=== PATIENT | female | born 1965 | race African-American/Black ===

== ENCOUNTER 2018-04-22 18:41 | Observation (INO) ==
[2018-04-22] MEDS ORDERED: Famotidine PF Inj 20 MG/2 ML Vial IV.PUSH ONE (19:36)
[2018-04-22 19:55] LABS: Baso % (Auto) 0.5 % (0.0-2.0); Eos # (Auto) 0.1 th/mm3 (0.0-0.4); Eos % (Auto) 1.3 % (0.0-4.0); Hematocrit 37.2 % (35.0-46.0); Hemoglobin 11.9 gm/dL (11.6-15.3); Lymph # (Auto) 1.8 th/mm3 (1.0-4.8); Lymph % (Auto) 35.1 % (9.0-44.0); Mean Corpuscular Hemoglobin 27.5 pg (27.0-34.0); Mean Corpuscular Volume 85.9 fL (80.0-100.0); Mean Platelet Volume 8.7 fL (7.0-11.0); Mono # (Auto) 0.6 th/mm3 (0.0-0.9); Neut # (Auto) 2.6 th/mm3 (1.8-7.7); Neut % (Auto) 52.1 % (16.0-70.0); Platelet Count 232 th/mm3 (150-450); Red Blood Count 4.33 mil/mm3 (4.00-5.30); Red Cell Distribution Width 14.9 % (11.6-17.2); White Blood Count 5.1 th/mm3 (4.0-11.0)
--- NOTE | 2018-04-22 19:57 | ED ---
HPI General Chief Complaint: Chest Pain Stated Complaint: High pressure/chest pain Time Seen by Provider: 04/22/18 19:13 History of Present Illness HPI narrative: Patient is a 52-year-old female coming in off-and-on chest pain substernal for the last day she says nothing makes it better nothing makes it worse she does not see any connection between food it is not exertional. She did not take anything for the symptoms. She has diabetes for which she takes metformin. She has hypertension for which she takes enalapril and nifedipine. The pain is localized substernal she has not seen another doctor for this. She has not taken any medications to alleviate this. And she is slightly hypertensive at triage 176 systolic blood pressure EKG is normal sinus rhythm at a rate of 60 bpm no ectopy no flipped T waves no ST depressions or elevations. Labs sent aspirin 162 chewable given and Pepcid IV is given Related Data Home Medications Medication Instructions Recorded Confirmed enalapril maleate 20 mg PO BID 04/22/18 04/22/18 metformin 500 mg PO BID 04/22/18 04/22/18 nifedipine 10 mg PO BID 04/22/18 04/22/18 Allergies Allergy/AdvReac Type Severity Reaction Status Date / Time No Known Allergies Allergy Verified 04/22/18 19:32 [facility] Medical History Medical History Diabetes (Acute) HTN (hypertension) (Acute) Surgical History Surgical History H/O: (Acute) History of appendectomy (Acute) Social History Social History Substance History: No History of Abuse Second Hand Smoke Exposure: No Smoking Status: Never smoker How Often Do You Have a Drink Containing Alcohol: Never Recent Travel in [facility] within the Last 8 Weeks: No Recent Out of Country Travel within the Last 8 Weeks: No Immunization History Tetanus Immunization: Unsure Exam Narrative Exam Narrative: GENERAL: Nontoxic-appearing in no apparent distress not diaphoretic no signs of acute ischemia cardiac SKIN: Warm and dry. HEAD: Atraumatic. Normocephalic. EYES: Pupils equal and round. No scleral icterus. No injection or drainage. ENT: No nasal bleeding or discharge. Mucous membranes pink and moist. NECK: Trachea midline. No JVD. CARDIOVASCULAR: Regular rate and rhythm. RESPIRATORY: No accessory muscle use. Clear to auscultation. Breath sounds equal bilaterally. GASTROINTESTINAL: Abdomen soft, non-tender, nondistended. Hepatic and splenic margins not palpable. MUSCULOSKELETAL: Extremities without clubbing, cyanosis, or edema. No obvious deformities. NEUROLOGICAL: Awake and alert. No obvious cranial nerve deficits. Motor grossly within normal limits. Five out of 5 muscle strength in the arms and legs. Normal speech. PSYCHIATRIC: Appropriate mood and affect; insight and judgment normal. Course Initial Documented Vital Signs Temperature 99.6 F 04/22/18 19:02 Pulse Rate 73 04/22/18 19:02 Respiratory Rate 22 04/22/18 19:02 Blood Pressure 169/84 H 04/22/18 19:02 Pulse Oximetry 99 04/22/18 19:02 Last Documented Vital Signs Temperature 99.6 F 04/22/18 19:02 Pulse Rate 66 04/22/18 19:38 Respiratory Rate 15 04/22/18 19:38 Blood Pressure 176/85 H 04/22/18 19:38 Pulse Oximetry 100 04/22/18 19:38 Medical Decision Making Differential Diagnosis Differential Diagnosis: Differential diagnosis includes GERD gastritis viral gastroenteritis versus cardiac ischemia versus costochondritis versus pericarditis versus muscle spasm versus gallbladder disease versus other Lab Data Lab results reviewed: Yes I reviewed the patient's lab results. Result diagrams: 04/22/18 19:35 04/22/18 19:35 ECG Data Attestation: I personally reviewed and interpreted this ECG as follows: (EKG normal sinus rhythm at a rate of 68 bpm) Discharge Plan Physicians Team ED Provider: Rich Salinas Primary Care Provider: Primary Care Bella Chao Rxs /Orders / Referrals /Forms Prescriptions: No Action metformin 500 mg Tablet 500 mg PO BID RF: 0 enalapril maleate 20 mg Tablet 20 mg PO BID RF: 0 nifedipine 10 mg Capsule 10 mg PO BID RF: 0 Status ED Status: With Doctor
[2018-04-22 20:20] LABS: Albumin 3.7 g/dL (3.4-5.0); Anion Gap 6 meq/L (5-15); Aspartate Aminotransferase 18 U/L (15-37); Blood Urea Nitrogen 22 mg/dL (7-18); Calcium 9.3 mg/dL (8.5-10.1); Carbon Dioxide 27.5 meq/L (21.0-32.0); Chloride 107 meq/L (98-107); Glomerular Filtration Rate 82 mL/min (>89); Glucose,Random 94 mg/dL (74-106); Potassium 4.2 meq/L (3.5-5.1); Sodium 140 meq/L (136-145)
[2018-04-22 20:21] LABS: Alanine Aminotransferase 23 U/L (10-53)
[2018-04-22 20:25] LABS: Alkaline Phosphatase 109 U/L (45-117); Total Protein 8.5 g/dL (6.4-8.2)
--- NOTE | 2018-04-22 20:30 | XR ---
EXAM DATE: 04/22/2018 7:32 PM EDT AGE/SEX: 52 years / Female INDICATIONS: Chest pain today. CLINICAL DATA: This is the patient's initial encounter. Patient reports that signs and symptoms have been present for 1 day and indicates a pain score of 5/10. MEDICAL/SURGICAL HISTORY: Hypertension. Diabetes. section. Appendectomy. COMPARISON: No prior exams available for comparison. FINDINGS: A single AP view of the chest demonstrates the lungs to be symmetrically aerated without evidence of mass, infiltrate or effusion. Cardiomegaly. No effusion or pneumothorax. CONCLUSION: Cardiomegaly without focal consolidation or effusion. Electronically signed by: Ole Chavez MD 04/22/2018 8:29 PM EDT
[2018-04-22 23:58] LABS: Creatine Kinase 130 U/L (26-192)
[2018-04-23 03:27] LABS: Creatine Kinase 122 U/L (26-192)
[2018-04-23 04:05] VITALS: RESP 16
[2018-04-23 07:18] VITALS: BP 141/82; TEMP 97.6; O2SAT 100
[2018-04-23] MEDS ORDERED: Acetaminophen 500 MG Tablet PO PRN (07:44)
--- NOTE | 2018-04-23 09:17 | P.HPCA ---
History of Present Illness Primary Care Physician: Primary Care Physician in [place] Chief Complaint: chest pain History of Present Illness: 52-year-old female with history of type 2 diabetes and hypertension visiting from [place] presents emergency room for further evaluation of chest pain. Onset Tuesday, became more severe Tuesday afternoon. Location substernal. Characterized as burning pressure. Radiation right inframammary area. No associated symptoms of nausea, vomiting, dyspnea, or diaphoresis. No precipitating or relieving factors. Denies similar pain in the past. History of acid reflux. Denies history of coronary artery disease. No past cardiac testing. Lifelong non-smoker. Family history contributory for early onset cardiovascular disease. No recent illness or injury. Past cardiac testing None Social history Known type 2 diabetes and hypertension diagnosed 2 years ago. No known coronary artery disease or hyperlipidemia. Of note patient is not on statin therapy. Lifelong non-smoker. No alcohol or recreational drug use. Lives in [place], visiting niece. Returning home 05/14/18. Endorses active lifestyle and dietary habits. Family history Noncontributory for early onset cardiovascular disease. - Diagnosis (1) Atypical chest pain (2) Hypertension (3) Type 2 diabetes mellitus Review of Systems All other systems reviewed negative except as stated in HPI PMFSH - History History Provided By: Patient - Medical History Medical History: Medical History (Last Reviewed 04/23/18 @ 09:28 by MARIA T Arnold) Diabetes HTN (hypertension) - Surgical History Surgical History: Surgical History (Last Reviewed 04/23/18 @ 09:28 by MARIA T Arnold) H/O: History of appendectomy - Family History Family History: Family History (Last Updated 04/23/18 @ 09:28 by MARIA T Arnold) Father Bone cancer - Social History I have reviewed the patient's Social History: Yes - Tobacco History Second Hand Smoke Exposure: No Tobacco Use In Past 30 Days: No Smoking Status: Never smoker - Alcohol History How Often Do You Have a Drink Containing Alcohol: Never - Substance Use History Substance History: No History of Abuse - Travel History Recent Travel in the [facility] Within the Last 8 Weeks: No Recent Travel Out of the Country Within the Last 8 Weeks: No - Immunization History Tetanus Immunization: Unsure Medications and Allergies Active Medications: Active Medications Acetaminophen (Tylenol) 500 mg PO Q4H PRN PRN Reason: HEADACHE Nitroglycerin (Nitrostat Sl) 0.4 mg SL Q5M PRN PRN Reason: CHEST PAIN Ondansetron HCl (Zofran Inj) 4 mg IV.PUSH Q6H PRN PRN Reason: NAUSEA Sodium Chloride (Ns Flush) 2 ml IV.FLUSH UNSCH PRN PRN Reason: FLUSH AFTER USING IV ACCESS Last Admin: 04/22/18 19:51 Dose: 2 ml Sodium Chloride (Ns Flush) 2 ml IV.FLUSH BID ANGELICA Sodium Chloride (Ns Flush) 2 ml IV.FLUSH PRN PRN PRN Reason: FLUSH AFTER USING IV ACCESS Allergies Allergy/AdvReac Type Severity Reaction Status Date / Time No Known Allergies Allergy Verified 04/22/18 19:32 Exam Vital signs: Vital Signs 04/22/18 19:02 04/22/18 19:32 04/22/18 19:38 Temperature 99.6 F Pulse Rate 73 66 Respiratory Rate 22 15 Blood Pressure 169/84 H 176/85 H Pulse Oximetry 99 100 100 04/22/18 22:12 04/22/18 23:50 04/23/18 00:00 Temperature 98.4 F Pulse Rate 68 60 Respiratory Rate 16 18 18 Blood Pressure 119/56 L 166/78 H Pulse Oximetry 100 96 04/23/18 00:20 04/23/18 04:04 04/23/18 04:18 Temperature 97.7 F Pulse Rate 50 L 55 L 53 L Respiratory Rate 16 Blood Pressure 136/72 Pulse Oximetry 98 04/23/18 07:17 Temperature 97.6 F Pulse Rate 59 L Respiratory Rate 16 Blood Pressure 141/82 H Pulse Oximetry 100 Intake & Output 04/22/18 04/23/18 04/23/18 18:59 06:59 18:59 Weight 68.039 kg Narrative: GENERAL: Alert WN, WD, NAD, pleasant, -Y[place]i, thin female HEAD: NC, AT EYES: Sclera clear, conjunctiva without injection, pupils equal and round ENT: Mucous membranes pink and moist NECK: Supple, no masses, trachea midline CV: RRR, without murmur, rub, gallop, no JVD, S1-S2 no S3-S4. No carotid bruits RESP: Clear lungs throughout bilateral, no crackles, wheeze, rhonchi, symmetrical chest rise, nonlabored, able to speak in full sentences ABD: Soft, NT, ND, no masses, positive bowel tones BACK: No scoliosis EXT: Pulses +2x4, no dependent edema MS: Normal tone x4 extremities, nontender, no obvious deformities, full range of motion NEURO: CN II through CN XII grossly intact, motor strength 5/5 PSYCH: A+O x3, pleasant affect, appropriate speech, mood, insight and judgment SKIN: Normal turgor, normal texture, no lesions, no rashes, brisk cap refill, even hair distribution Results 04/22/18 19:35 04/22/18 19:35 Cardiac Enzymes 04/22/18 04/22/18 04/23/18 Range/Units 19:35 23:10 02:30 AST 18 (15-37) U/L Troponin I Less than 0.02 L Less than 0.02 L Less than 0.02 L (0.02-0.05) ng/mL CBC 04/22/18 Range/Units 19:35 WBC 5.1 (4.0-11.0) th/mm3 RBC 4.33 (4.00-5.30) mil/mm3 Hgb 11.9 (11.6-15.3) gm/dL Hct 37.2 (35.0-46.0) % Plt Count 232 (150-450) th/mm3 Neut # (Auto) 2.6 (1.8-7.7) th/mm3 Lymph # (Auto) 1.8 (1.0-4.8) th/mm3 [place] # (Auto) 0.6 (0.0-0.9) th/mm3 Eos # (Auto) 0.1 (0.0-0.4) th/mm3 Baso # (Auto) 0.0 (0.0-0.2) th/mm3 Comprehensive Metabolic Panel 04/22/18 Range/Units 19:35 Sodium 140 (136-145) meq/L Potassium 4.2 (3.5-5.1) meq/L Chloride 107 (98-107) meq/L Carbon Dioxide 27.5 (21.0-32.0) meq/L BUN 22 H (7-18) mg/dL Creatinine 0.87 (0.50-1.00) mg/dL Calcium 9.3 (8.5-10.1) mg/dL AST 18 (15-37) U/L ALT 23 (10-53) U/L Alkaline Phosphatase 109 (45-117) U/L Total Protein 8.5 H (6.4-8.2) g/dL Albumin 3.7 (3.4-5.0) g/dL Intake and Output 04/22/18 04/23/18 04/23/18 22:59 06:59 14:59 Other: Weight 68.039 kg - Imaging and Cardiology Imaging: Impressions Chest X-Ray 04/22/18 19:32 CONCLUSION: Cardiomegaly without focal consolidation or effusion. EKG interpretations - EKG EKG results cardiology: sinus rhythm, normal axis, normal QRS, normal ST/T Caprini VTE Risk Assessment Caprini VTE Risk Assessment: No/Low Risk (score <= 1) Caprini Risk Assessment Model: Point Value = 1 Point Value = 2 Point Value = 3 Point Value = 5 Age 41-60 Minor surgery BMI > 25 kg/m2 Swollen legs Varicose veins or History of unexplained or recurrent spontaneous Oral contraceptives or hormone replacement Sepsis (< 1 month) Serious lung disease, including pneumonia (< 1 month) Abnormal pulmonary function Acute myocardial infarction Congestive heart failure (< 1 month) History of inflammatory bowel disease Medical patient at bed rest Age 61-74 Arthroscopic surgery Major open surgery (> 45 min) Laparoscopic surgery (> 45 min) Malignancy Confined to bed (> 72 hours) Immobilizing plaster cast Central venous access Age >= 75 History of VTE Family history of VTE Factor V Leiden Prothrombin [id number] Lupus anticoagulant Anticardiolipin antibodies Elevated serum homocysteine Heparin-induced thrombocytopenia Other congenital or acquired thrombophilia Stroke (< 1 month) Elective arthroplasty Hip, pelvis, or leg fracture Acute spinal cord injury (< 1 month) Prophylaxis Regimen: Total Risk Factor Score Risk Level Prophylaxis Regimen 0-1 Low Early ambulation 2 Moderate Order ONE of the following: *Sequential Compression Device (SCD) *Heparin 5000 units SQ BID 3-4 Higher Order ONE of the following medications: *Heparin 5000 units SQ TID *Enoxaparin/Lovenox 40 mg SQ daily (WT < 150 kg, CrCl > 30 mL/min) *Enoxaparin/Lovenox 30 mg SQ daily (WT < 150 kg, CrCl > 10-29 mL/min) *Enoxaparin/Lovenox 30 mg SQ BID (WT < 150 kg, CrCl > 30 mL/min) AND/OR *Sequential Compression Device (SCD) 5 or more Highest Order ONE of the following medications: *Heparin 5000 units SQ TID (Preferred with Epidurals) *Enoxaparin/Lovenox 40 mg SQ daily (WT < 150 kg, CrCl > 30 mL/min) *Enoxaparin/Lovenox 30 mg SQ daily (WT < 150 kg, CrCl > 10-29 mL/min) *Enoxaparin/Lovenox 30 mg SQ BID (WT < 150 kg, CrCl > 30 mL/min) AND *Sequential Compression Device (SCD) Assessment and Plan - Assessment (1) Atypical chest pain Code(s): R07.89 - Other chest pain Status: Acute Plan: Admitted to chest pain center. Monitor on telemetry overnight. ACS ruled out with 3 sets of EKGs and cardiac enzymes. Evaluated by Dr. Eugenio Mathur. Proceed with exercise cardiac testing this morning. If unremarkable, plans will be to discharge home following up with her primary care provider once returning home to [place]. Verbalized understanding and agrees with plan of care. 1210 Exercise cardiac testing completed. Reviewed with Dr. Mathur. ST most upsloping, consistent with LVH. Discharge home with follow up with PCP after returning home. (2) Hypertension Code(s): I10 - Essential (primary) hypertension Status: Chronic Plan: Continue nifedipine and enalapril. Chest x-ray suggesting cardiomegaly. Blood pressure control and close monitoring by primary care provider. (3) Type 2 diabetes mellitus Code(s): E11.9 - Type 2 diabetes mellitus without complications Status: Chronic Plan: Hold metformin. Encouraged her to discuss primary care provider starting statin therapy with diagnosis of diabetes. H&P: Quality - VTE Deep Vein Thrombosis/Pulmonary Embolism Present on Admission: No (2) Hypertension Qualifiers: Hypertension type: unspecified Qualified Code(s): I10 - Essential (primary) hypertension (3) Type 2 diabetes mellitus Qualifiers: Diabetes mellitus snf insulin use: without terminal makeup operator use Diabetes mellitus complication status: without complication Qualified Code(s): E11.9 - Type 2 diabetes mellitus without complications
[2018-04-23] MEDS ORDERED: NIFEdipine 10 MG Capsule PO SCH (10:00)
[2018-04-23 10:29] VITALS: PULSE 48
--- NOTE | 2018-04-23 10:54 | P.PNCA ---
Subjective Interval history: This pleasant 52-year-old [place] lady was presented by the nurse practitioner subsequently seen and examined personally. I am in agreement with the history as documented however I would emphasize that the pain is low sternal upper epigastrium and that the radiation is actually in the right upper abdomen more than the lower chest. Otherwise entirely in agreement with documentation. After discussion and review decision was made to continue evaluation with chest pain center protocol including exercise stress test. It is anticipated that this will be negative and the patient will be discharged to further follow-up on an outpatient setting. However the presence of some LVH on both chest x-ray and EKG suggests the need to emphasize better blood pressure control with the patient Medications and Allergies Active Medications: Active Medications Acetaminophen (Tylenol) 500 mg PO Q4H PRN PRN Reason: HEADACHE Enalapril Maleate (Vasotec) 20 mg PO BID [facility] Last Admin: 04/23/18 10:19 Dose: 20 mg Nifedipine (Procardia) 10 mg PO BID [facility] Nitroglycerin (Nitrostat Sl) 0.4 mg SL Q5M PRN PRN Reason: CHEST PAIN Ondansetron HCl (Zofran Inj) 4 mg IV.PUSH Q6H PRN PRN Reason: NAUSEA Sodium Chloride (Ns Flush) 2 ml IV.FLUSH UNSCH PRN PRN Reason: FLUSH AFTER USING IV ACCESS Last Admin: 04/22/18 19:51 Dose: 2 ml Sodium Chloride (Ns Flush) 2 ml IV.FLUSH BID [facility] Last Admin: 04/23/18 10:20 Dose: 2 ml Sodium Chloride (Ns Flush) 2 ml IV.FLUSH PRN PRN PRN Reason: FLUSH AFTER USING IV ACCESS Allergies Allergy/AdvReac Type Severity Reaction Status Date / Time No Known Allergies Allergy Verified 04/22/18 19:32 Home Medications Medication Instructions Recorded Confirmed Type enalapril maleate 20 mg PO BID 04/22/18 04/22/18 History metformin 500 mg PO BID 04/22/18 04/22/18 History nifedipine 10 mg PO BID 04/22/18 04/22/18 History Physical Exam Vital signs: Vital Signs 04/22/18 19:02 04/22/18 19:32 04/22/18 19:38 Temperature 99.6 F Pulse Rate 73 66 Respiratory Rate 22 15 Blood Pressure 169/84 H 176/85 H Pulse Oximetry 99 100 100 04/22/18 22:12 04/22/18 23:50 04/23/18 00:00 Temperature 98.4 F Pulse Rate 68 60 Respiratory Rate 16 18 18 Blood Pressure 119/56 L 166/78 H Pulse Oximetry 100 96 04/23/18 00:20 04/23/18 04:04 04/23/18 04:18 Temperature 97.7 F Pulse Rate 50 L 55 L 53 L Respiratory Rate 16 Blood Pressure 136/72 Pulse Oximetry 98 04/23/18 07:17 04/23/18 08:00 Temperature 97.6 F Pulse Rate 59 L 48 L Respiratory Rate 16 Blood Pressure 141/82 H Pulse Oximetry 100 Intake & Output 04/22/18 04/23/18 04/23/18 18:59 06:59 18:59 Weight 68.039 kg Other: Date of Last Bowel Movement 04/22/18 Narrative: I am in agreement with the physical examination is documented Neck supple no JVD masses nodes or bruits Chest clear to auscultation with no rales wheezes or rhonchi and no areas of tenderness Cardiovascular the PMI is not displaced there is a regular rhythm no gallops rubs or murmurs are noted The abdomen is soft nontender slightly hyperactive bowel sounds no guarding rebound or masses. Results 04/22/18 19:35 04/22/18 19:35 Cardiac Enzymes 04/22/18 04/22/18 04/23/18 Range/Units 19:35 23:10 02:30 AST 18 (15-37) U/L Troponin I Less than 0.02 L Less than 0.02 L Less than 0.02 L (0.02-0.05) ng/mL CBC 04/22/18 Range/Units 19:35 WBC 5.1 (4.0-11.0) th/mm3 RBC 4.33 (4.00-5.30) mil/mm3 Hgb 11.9 (11.6-15.3) gm/dL Hct 37.2 (35.0-46.0) % Plt Count 232 (150-450) th/mm3 Neut # (Auto) 2.6 (1.8-7.7) th/mm3 Lymph # (Auto) 1.8 (1.0-4.8) th/mm3 [place] # (Auto) 0.6 (0.0-0.9) th/mm3 Eos # (Auto) 0.1 (0.0-0.4) th/mm3 Baso # (Auto) 0.0 (0.0-0.2) th/mm3 Comprehensive Metabolic Panel 04/22/18 Range/Units 19:35 Sodium 140 (136-145) meq/L Potassium 4.2 (3.5-5.1) meq/L Chloride 107 (98-107) meq/L Carbon Dioxide 27.5 (21.0-32.0) meq/L BUN 22 H (7-18) mg/dL Creatinine 0.87 (0.50-1.00) mg/dL Calcium 9.3 (8.5-10.1) mg/dL AST 18 (15-37) U/L ALT 23 (10-53) U/L Alkaline Phosphatase 109 (45-117) U/L Total Protein 8.5 H (6.4-8.2) g/dL Albumin 3.7 (3.4-5.0) g/dL Intake and Output 04/22/18 04/23/18 04/23/18 22:59 06:59 14:59 Other: Date of Last Bowel Movement 04/22/18 Weight 68.039 kg - Imaging and Cardiology Imaging: Impressions Chest X-Ray 04/22/18 19:32 CONCLUSION: Cardiomegaly without focal consolidation or effusion. Assessment and Plan - Assessment (1) Atypical chest pain Code(s): R07.89 - Other chest pain Status: Acute Plan: Admitted to chest pain center. Monitor on telemetry overnight. ACS ruled out with 3 sets of EKGs and cardiac enzymes. Evaluated by Dr. Eugenio Mathur. Proceed with exercise cardiac testing this morning. If unremarkable, plans will be to discharge home following up with her primary care provider once returning home to [place]. Verbalized understanding and agrees with plan of care. Agree with above note (2) Hypertension Code(s): I10 - Essential (primary) hypertension Status: Chronic Plan: Continue nifedipine and enalapril. Chest x-ray suggesting cardiomegaly. Blood pressure control and close monitoring by primary care provider. Emphasized to the patient that tighter control of the blood pressure would probably be appropriate. (3) Type 2 diabetes mellitus Code(s): E11.9 - Type 2 diabetes mellitus without complications Status: Chronic Plan: Hold metformin. Encouraged her to discuss primary care provider starting statin therapy with diagnosis of diabetes. 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
--- NOTE | 2018-04-23 11:31 | ECG ---
Date Performed: 04/23/2018 Time Performed: 02:44:10 PTAGE: 52 years EKG: SINUS BRADYCARDIA BORDERLINE ECG No significant change PREVIOUS TRACING : 04/22/2018 19.25 DOCTOR: Eugenio Mathur Interpretating Date/Time 04/23/2018 11:29:58
--- NOTE | 2018-04-23 11:34 | ECG ---
Date Performed: 04/22/2018 Time Performed: 19:25:03 PTAGE: 52 years EKG: Sinus rhythm MODERATE VOLTAGE CRITERIA FOR LVH, CONSIDER NORMAL VARIANT BORDERLINE ECG PREVIOUS TRACING : 04/22/2018 19.24 DOCTOR: Eugenio Mathur Interpretating Date/Time 04/23/2018 11:32:34
--- NOTE | 2018-04-24 14:12 | TR ---
Date Performed: 04/23/2018 Time Performed: 11:25:08 DOCTOR: Darshan Bueno DRUG LIST: CLINICAL HISTORY: CHEST PAIN REASON FOR TEST: Chest pain REASON FOR ENDING: OBSERVATION: CONCLUSION: Gianfranco protocol completed. Stopped sec to reaching target heart rate and leg fatigue. Maximum JC=871 Max HR Achieved=84.0% Total Exercise Time=7:42 Maximum GG=107/82. No reprod chest dis comfort. No ectopy. No st t segment changes, nondiagnostic. Normal bp response. Great exercise tolera nce. Recovery quick and unremarkable. COMMENTS: Patient exercised using the Gianfranco protocol. No electrocardiographic changes were seen to suggest ischemia. Hemodynamic response to exercise was normal. No significant arrhythmia was prese nt.
== END 2018-04-23 13:21 | disposition home or self-care (01) ==
LOC: NEDA 18:41 → NEPC 18:41 → NEPGCP 23:45
PROVIDERS: ADMIT Internal Medicine Interventional Cardiology; ATTEND Internal Medicine Interventional Cardiology